=== PATIENT | male | born 1955 | race Caucasian/White ===

== ENCOUNTER 2019-03-26 05:53 | Observation (INO) ==
--- NOTE | 2019-03-19 16:20 | PAT Medication Instructions ---
Medication Instructions Date of Service March 20, 2019 Home Medications bupropion HCl 300 mg PO QAM multivitamin 1 tab PO QAM omeprazole 20 mg PO QPM pravastatin 10 mg PO QPM venlafaxine [Effexor XR] 37.5 mg PO QAM venlafaxine [Effexor XR] 150 mg PO QAM DO NOT take the morning of surgery multivitamin 1 tab PO QAM Take morning of surgery With a small sip of water, OTHERWISE NOTHING TO EAT OR DRINK AFTER MIDNIGHT: venlafaxine [Effexor XR] 37.5 mg PO QAM venlafaxine [Effexor XR] 150 mg PO QAM bupropion HCl 300 mg PO QAM Take evening before surgery omeprazole 20 mg PO QPM pravastatin 10 mg PO QPM Other Notes If you have any questions please call us at [phone] or [phone] or [phone] or [phone]
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
[2019-03-20 10:48] LABS: Basophils # (auto) 0.04 K/uL (0-0.2); Basophils % (auto) 0.4 %; Eosinophils # (auto) 0.21 K/uL (0-0.5); Eosinophils % (auto) 2.1 %; Hematocrit (blood only) 47.6 % (42-52); Hemoglobin 16.5 g/dL (14.0-18.0); Immature Granulocytes # (auto) 0.05 K/uL (0.00-0.02); Immature Granulocytes % (auto) 0.5 %; Lymphocytes # (auto) 2.27 K/uL (1.2-3.4); Lymphocytes % (auto) 23.2 %; Mean Corpuscular Hgb Conc 34.7 g/dL (32-36); Mean Corpuscular Volume 94.4 fL (80-100); Mean Platelet Volume 10.6 fL (7.4-10.4); Monocytes # (auto) 1.45 K/uL (0.11-0.59); Monocytes % (auto) 14.8 %; Neutrophils # (auto) 5.78 K/uL (1.4-6.5); Platelet Count 334 K/uL (130-400); RDW Coefficient of Variation 13.6 % (11.5-14.5); RDW Standard Deviation 47.1 fL (36.4-46.3); Red Blood Count 5.04 M/uL (4.7-6.1)
[2019-03-20 10:55] LABS: BUN Creatinine Ratio 13.4 (10-20); Calcium 9.2 mg/dl (8.5-10.1); Creatinine Clr Calc Pharmacy 85.1 ml/min; Est GFR (African American) 94.6; Est GFR (Non-African American) 81.6; Potassium 4.5 mmol/L (3.5-5.1)
[2019-03-20 11:01] LABS: INR 0.9 (0.9-1.1); Partial Thromboplastin Time 27.1 Seconds (21.0-31.0); Prothrombin Time 9.7 Seconds (9.0-12.0)
--- NOTE | 2019-03-23 14:28 | History and Physical Report ---
DATE OF ADMISSION: 03/26/2019 CHIEF COMPLAINT: Upper extremity weakness. HISTORY OF PRESENT ILLNESS: He has 2-level cervical spine disease. He has partial paralysis. He has weakness of deltoid, biceps. He is going downhill, kyphosis and cannot lift his upper extremity. PAST MEDICAL HISTORY: Positive for anxiety, high cholesterol. No hypertension, COPD, diabetes, carcinoma. PAST SURGICAL HISTORY: Appendectomy, hernia repair, trigger finger release. ALLERGIES: Prozac. MEDICATIONS: Effexor, vitamin, Wellbutrin, pravastatin. FAMILY HISTORY: Heart disease. SOCIAL HISTORY: , moderate alcohol, moderate tobacco. REVIEW OF SYSTEMS: Twelve-system reviewed. He denies any blurred vision, double vision, tinnitus, vertigo. Ear, nose and throat are all negative. Denies chest pain, palpitations. Denies nausea, vomiting, urgency, frequency. No GI distress. He has depression. He has skin rashes. He has profound upper extremity weakness. OBJECTIVE: GENERAL: He is 5 feet 8 inches, 205. He is in significant distress, more weakness, not as much pain. VITAL SIGNS: Blood pressure 130/80, pulse 80, respirations 16. HEENT: Pupils react to light and accommodation. Ear, nose and throat clear. CARDIAC: Normal S1, S2. No S3. ABDOMEN: Soft, nontender, bowel sounds present. MUSCULOSKELETAL: He has a Spurling maneuver and Lhermitte sign. He has weakness as stated. He has slight hyperreflexia. IMPRESSION: Cord compression, cervical spine. PLAN: Includes an anterior cervical discectomy and fusion C3-C5, cervical spine with iliac crest bone graft.
[2019-03-26] MEDS ORDERED: CEFAZOLIN 2000MG 2,000 MG/15 ML SYR IV SCH (06:00)
[2019-03-26] MEDS ORDERED: LR 15ML/HR IV SCH (06:00)
[2019-03-26] MEDS ORDERED: SODIUM CHLORIDE 0.9% 1000ML IV SCH (06:00)
[2019-03-26] MEDS ORDERED: GLYCOPYRROLATE 0.2 MG/ML VIAL ONE (06:30)
[2019-03-26] MEDS ORDERED: LIDOCAINE HCL 2% 2 ML VIAL/AMP(20MG/ML) INFIL ONE (06:30)
[2019-03-26] MEDS ORDERED: ROCURONIUM BROMIDE 10 MG/ML 5 ML VIAL ONE (06:30)
[2019-03-26] MEDS ORDERED: DEXAMETHASONE SOD INJ 4 MG/ML VIAL ONE (06:30)
[2019-03-26] MEDS ORDERED: ONDANSETRON INJ 2 MG/ML 2 ML VIAL ONE ×2 (06:30→06:33)
[2019-03-26] MEDS ORDERED: NEOSTIGMINE METHYLSULFATE 5 MG/5 ML SYR ONE (06:30)
[2019-03-26] MEDS ORDERED: PROPOFOL IV EMULSION 10 MG/ML 20 ML VIAL IV ONE (06:30)
[2019-03-26] MEDS ORDERED: fentaNYL citrate 100 MCG/2 ML VIAL ONE ×2 (06:31)
[2019-03-26] MEDS ORDERED: MIDAZOLAM HCL 1 MG/ML 2ML VIAL ONE (06:31)
[2019-03-26] MEDS ORDERED: KETAMINE HCL INJ 50 MG/ML 10 ML VIAL ONE (06:32)
[2019-03-26] MEDS ORDERED: HYDROmorphone INJ 2 MG/ML SYR/VIAL ONE ×2 (06:32→08:24)
[2019-03-26] MEDS ORDERED: ACETAMINOPHEN 1000 MG/100 ML IV IV ONE (06:41)
[2019-03-26] MEDS ORDERED: BUPIVACAINE/EPINEPHRINE 0.5% MPF 1:200,000 30 ML VIAL ONE ×2 (06:51→06:55)
[2019-03-26] MEDS ORDERED: GELATIN SPONGE SZ 100 ONE (06:52)
[2019-03-26] MEDS ORDERED: BACITRACIN INJ 50,000 UNIT VIAL ONE (06:52)
[2019-03-26] MEDS ORDERED: THROMBIN FOR SOLN 20000 UNIT KIT ONE (06:52)
[2019-03-26] MEDS ORDERED: ONDANSETRON INJ 2 MG/ML 2 ML VIAL IV PRN ×2 (07:01→11:16)
[2019-03-26] MEDS ORDERED: ATROPINE SULFATE 0.1 MG/ML 10ML SYR IV PRN (07:01)
[2019-03-26] MEDS ORDERED: ePHEDrine sulfate 50 MG/ML AMP IV PRN (07:01)
[2019-03-26] MEDS ORDERED: HYDROmorphone INJ 1 MG/ML SYRINGE IV PRN (07:01)
--- NOTE | 2019-03-26 07:03 | History & Physical Bridge Note ---
Date of Service March 26, 2019 History & Physical Bridge Note I have examined the patient, reviewed the History & Physical and in the interval since the performance of the History & Physical I have noted the following changes of clinical significance: no changes noted
[2019-03-26] MEDS ORDERED: ALBUTEROL HFA INHALER 8.5 GM ONE (07:57)
--- NOTE | 2019-03-26 09:27 | Fluoroscopy Report ---
FL spine 1V any level HISTORY: Cervical fusion. FLUOROSCOPY TIME: 14 seconds. FINDINGS: Intraoperative fluoroscopy was provided for the cervical spine.. 1 fluoroscopic spot images were obtained. IMPRESSION: Fluoroscopy provided for a cervical fusion.. The above report was generated using voice recognition software. It may contain grammatical, syntax or spelling errors. Electronically signed by: Jose Holder M.D. 03/26/2019 9:26 AM
--- NOTE | 2019-03-26 09:40 | Post Operative Brief Note ---
Immediate Post Op Note v1 Date of Surgery March 26, 2019 Pre & Post Diagnosis Operation Date: 03/26/19 07:30 Pre-Op Diagnosis: Cord Compression Post-Op Diagnosis: Cord Compression Procedure Operation Date: 03/26/19 07:30 Actual Procedures p C3-C4, C4-C5 Anterior Cervical Discectomy Fusion(Not Applicable) - Mike Tay DO Surgeon Mike Tay DO Marker Assembler padmini duncan Estimated Blood Loss 20 Findings Consistent with Post-Op Diagnosis Drains Sheba Drain Complications none Disposition Accompanied Patient To Recovery: Yes Overlapping Procedure I was immediately available: during the entire case.
[2019-03-26] MEDS: fentaNYL citrate 100 MCG/2 ML VIAL IV PRN ×2 (09:49→09:54)
--- NOTE | 2019-03-26 10:52 | Anesthesiology Progress Note ---
Date of Service March 26, 2019 Anesthesia Post Procedure Vital Signs Vital Signs: Temp Pulse Pulse Resp BP BP Pulse Ox 03/26/19 10:45 83 16 146/80 H 94 03/26/19 10:35 36.5 C 85 16 152/93 H 94 03/26/19 10:25 86 15 159/84 H 94 03/26/19 10:15 85 14 153/88 H 95 03/26/19 10:05 88 16 160/92 H 96 03/26/19 09:55 86 16 163/97 H 97 03/26/19 09:45 92 H 18 172/95 H 98 03/26/19 09:34 36.3 C L 99 H 14 172/94 H 97 03/26/19 06:17 36.6 C 66 16 164/94 H 99 Transfer of Care Handoff Completed per policy Notes Mental Status: alert / awake / arousable and participated in evaluation Patient Amnestic to Procedure: Yes Nausea / Vomiting: adequately controlled Pain: adequately controlled Airway Patency, RR, SpO2: stable & adequate BP & HR: stable & adequate Hydration State: stable & adequate Anesthetic Complications: no major complications apparent and Pt Satisfied with anesthetic care
[2019-03-26] MEDS ORDERED: TRIAMCINOLONE ACET 0.025% CR 15 GM TUBE TOP PRN (11:16)
[2019-03-26] MEDS ORDERED: LORazepam 0.5 MG TAB PO PRN (11:16)
[2019-03-26] MEDS ORDERED: ACETAMINOPHEN 1,000 MG/100 ML VIAL IV PRN (11:16)
[2019-03-26] MEDS ORDERED: DEXAMETHASONE SOD PHOSPHATE 8 MG in SYRINGE 0 ML IV PRN (11:16)
[2019-03-26] MEDS ORDERED: RACEPINEPHRINE 2.25% NEBU SOLN 0.5 ML VIAL INH PRN (11:16)
[2019-03-26] MEDS ORDERED: NALOXONE HCL 0.4 MG/1 ML VIAL/CARP IV PRN (11:16)
[2019-03-26] MEDS ORDERED: HYDROmorphone INJ 0.5 MG/0.5 ML SYR IV PRN (11:16)
[2019-03-26] MEDS: SODIUM CHLORIDE 0.9% 1000ML 1,000 ML IV SCH (12:21)
--- NOTE | 2019-03-26 14:05 | Operative Report ---
DATE OF OPERATION: 03/26/2019 PREOPERATIVE DIAGNOSIS: Spinal cord compression, C3-C4, C4-C5 cervical spine. POSTOPERATIVE DIAGNOSIS: Spinal cord compression, C3-C4, C4-C5 cervical spine. PROCEDURES: Anterior cervical discectomy and fusion, C3-C4, C4-C5 cervical spine with an anterior interbody spacer, mechanical device, PEEK spacer at C3-C4 and C4-C5 cervical spine. SURGEON: Mike Tay DO SUPERVISOR CUTTING AND SEWING ROOM: Johnny Vu PA-C DESCRIPTION OF PROCEDURE: The patient was identified in the preop holding area, initialed, marked. A bridge note provided. He was brought back. He was intubated, placed on the table, prepped and draped sterile. Formal timeout taken. We made a transverse skin incision, fascial incision, with relative ease, we got down to the spinal elements. He was a fairly good size individual, it was not a simple dissection. We were able to come in on the C4-C5 interval of cervical spine, putting in our hand-held retractors. We then commenced with a formal discectomy at C4-C5 and C3-C4 of the cervical spine, at both levels, we got back through the posterior longitudinal ligament. I took off ligamentous structures, disc structures. I did foraminotomies at both levels. The discectomy was completed. I was very pleased with the evacuation of the disc material. We then used the implants. I used local autograft, but I had taken from the vertebral bodies of C3 and C4. I was able to use that to place into the PEEK spacers for the vacated discectomy sites. I also used a material called DBM, which is in demineralized bone matrix to help fill in the void. The implants were locked superior and inferior at both levels. We irrigated thoroughly. Cross table x-ray looked appropriate. Sterile dressings applied. Collar applied. The patient returned to PACU stable. There were no complications. Sponge and needle count correct. IMPLANTS USED: By the [employer]. I attest to the content of the Intraoperative Record and any orders documented therein. Any exception s are noted below.
[2019-03-26] MEDS ORDERED: LORazepam 1 MG/2 ML VIAL IV PRN (15:00)
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
[2019-03-26] MEDS: OXYCODONE HCL IR 5 MG TAB (IMMEDIATE RELEASE) PO PRN ×3 (15:44→21:16)
[2019-03-26] MEDS: CEFAZOLIN 2000MG 2,000 MG/15 ML SYR IV SCH ×2 (16:29→23:56)
[2019-03-26] MEDS ORDERED: AMLODIPINE BESYLATE 5 MG TAB PO ONE (18:30)
[2019-03-26] MEDS ORDERED: PRAVASTATIN SOD 10 MG TAB PO SCH (21:00)
[2019-03-26] MEDS ORDERED: PANTOprazole 40 MG TAB PO SCH (21:00)
[2019-03-27] MEDS ORDERED: cloNIDine HCl 0.1 MG TAB PO ONE ×2 (00:34→10:37)
[2019-03-27] MEDS: SODIUM CHLORIDE 0.9% 1000ML 1,000 ML IV SCH (01:04)
[2019-03-27] MEDS: OXYCODONE HCL IR 5 MG TAB (IMMEDIATE RELEASE) PO PRN ×3 (02:55→14:36)
[2019-03-27 07:09] LABS: Hematocrit (blood only) 46.9 % (42-52); Hemoglobin 15.9 g/dL (14.0-18.0); Mean Corpuscular Hgb Conc 33.9 g/dL (32-36); Mean Corpuscular Volume 96.5 fL (80-100); Mean Platelet Volume 10.4 fL (7.4-10.4); Platelet Count 259 K/uL (130-400); RDW Coefficient of Variation 13.7 % (11.5-14.5); RDW Standard Deviation 48.4 fL (36.4-46.3); Red Blood Count 4.86 M/uL (4.7-6.1); White Blood Count 15.83 K/uL (4.8-10.8)
[2019-03-27 07:40] LABS: Calcium 8.9 mg/dl (8.5-10.1); Creatinine Clr Calc Pharmacy 85.5 ml/min; Est GFR (African American) 95.8; Est GFR (Non-African American) 82.6; Potassium 3.8 mmol/L (3.5-5.1)
[2019-03-27] MEDS: CEFAZOLIN 2000MG 2,000 MG/15 ML SYR IV SCH (08:13)
--- NOTE | 2019-03-27 08:29 | Anesthesiology Progress Note ---
Date of Service March 27, 2019 Anesthesia Post Procedure Vital Signs Vital Signs: Temp Pulse Pulse Pulse Resp BP BP 03/27/19 07:07 72 14 03/27/19 06:05 36.4 C L 73 16 163/101 H 03/27/19 04:07 36.5 C 71 18 162/103 H 03/27/19 03:49 67 18 03/27/19 02:51 36.6 C 78 14 170/110 H 03/27/19 02:02 36.4 C L 71 18 170/109 H 03/27/19 00:25 170/92 H 03/27/19 00:11 36.4 C L 78 18 191/110 H 03/27/19 00:05 03/26/19 23:25 81 18 03/26/19 22:19 36.4 C L 74 18 160/94 H 03/26/19 20:05 36.4 C L 74 16 148/92 H 03/26/19 19:00 88 18 03/26/19 18:03 36.4 C L 80 150/93 H 03/26/19 15:38 36.3 C L 90 14 132/88 03/26/19 14:01 88 18 148/97 H 03/26/19 13:05 36.4 C L 88 18 160/97 H 03/26/19 12:16 151/91 H 03/26/19 12:03 89 18 165/101 H 03/26/19 11:37 89 18 143/87 H 03/26/19 11:19 36.4 C L 87 18 135/76 03/26/19 11:13 86 18 03/26/19 10:45 83 16 146/80 H 03/26/19 10:35 36.5 C 85 16 152/93 H 03/26/19 10:25 86 15 159/84 H 03/26/19 10:15 85 14 153/88 H 03/26/19 10:05 88 16 160/92 H 03/26/19 09:55 86 16 163/97 H 03/26/19 09:45 92 H 18 172/95 H 03/26/19 09:34 36.3 C L 99 H 14 172/94 H Pulse Ox Pulse Ox 03/27/19 07:07 94 03/27/19 06:05 99 03/27/19 04:07 99 03/27/19 03:49 98 03/27/19 02:51 97 03/27/19 02:02 98 03/27/19 00:25 03/27/19 00:11 96 03/27/19 00:05 98 03/26/19 23:25 95 03/26/19 22:19 96 03/26/19 20:05 95 03/26/19 19:00 97 03/26/19 18:03 96 03/26/19 15:38 96 03/26/19 14:01 97 03/26/19 13:05 95 03/26/19 12:16 03/26/19 12:03 95 03/26/19 11:37 94 03/26/19 11:19 95 03/26/19 11:13 95 03/26/19 10:45 94 03/26/19 10:35 94 03/26/19 10:25 94 03/26/19 10:15 95 03/26/19 10:05 96 03/26/19 09:55 97 03/26/19 09:45 98 03/26/19 09:34 97 Pain Intensity Anterior Neck: Pain Intensity: 0 Right Shoulder: Pain Intensity: 0 Notes Mental Status: alert / awake / arousable and participated in evaluation Patient Amnestic to Procedure: Yes Nausea / Vomiting: adequately controlled Pain: adequately controlled Airway Patency, RR, SpO2: stable & adequate BP & HR: stable & adequate Hydration State: stable & adequate Anesthetic Complications: no major complications apparent and Pt Satisfied with anesthetic care
[2019-03-27] MEDS ORDERED: BuPROPion XL 300 MG TABCR PO SCH (09:00)
[2019-03-27] MEDS ORDERED: FOLIC ACID 1 MG TAB PO SCH (09:00)
[2019-03-27] MEDS ORDERED: VENLAFAXINE HCL XR 37.5 MG CAPXR PO SCH (09:00)
[2019-03-27] MEDS ORDERED: VENLAFAXINE HCL XR 150 MG CAPXR PO SCH (09:00)
[2019-03-27] MEDS ORDERED: THIAMINE HCL 100 MG TAB PO SCH (09:00)
[2019-03-27] MEDS ORDERED: HydrALAZINE HCL 20 MG/ML VIAL IV ONE (09:38)
--- NOTE | 2019-03-27 09:48 | Hospitalist Progress Note ---
Date of Service March 27, 2019 Assessment & Plan (1) History of cervical spinal surgery: This is a 63yo M with a PMH of mood disorder, ANTHONY, h/o heavy etoh use, tobacco use and other medical problems listed below who is POD#0 s/p anterior cervical discectomy and fusion C3-C5 by Dr. Tay. POD#1 s/p anterior cervical discectomy and fusion C3-C5 by Dr. Tay tolerated procedure well Per ortho for pain control, wound care, anticoagulation and activities Monitor H&H (EBL: 20ml, pre-op hgb 16.5) Continue incentive spirometry, PT/OT when appropriate (2) Elevated blood pressure reading: Blood pressure elevated postoperatively, currently 175/108 Patient denies history of hypertension Per [facility] records patient BP mostly controlled in outpt setting Likely pain is playing some contributing factor He did receive amlodipine at 1900 yesterday and 0.1 mg of clonidine at 1 AM today Give 5mg IV hydralazine x 1 now History of EtOH abuse, on withdrawal protocol Also history of tobacco abuse, denies need for nicotine patch Patient will be discharged home at 12 PM today I have set him up with his PCP office on 03/29 11 AM for hospital follow-up as well as repeat blood pressure check currently asymptomatic; have encouraged patient to monitor blood pressure until seen by PCP (3) Mood disorder: mood stable. Continue Effexor, Wellbutrin (4) GERD (gastroesophageal reflux disease): Continue PPI (5) Prediabetes: Managing with a low carb diet as an out-patient Carb consistent diet (6) Sleep apnea: Intolerant to CPAP (7) Tobacco use disorder: Recently decreased to 1/2 ppd Does not feel he needs nicotine patch PCP: Celina (Nupur) Follow up scheduled for 03/29/19 at 11am with Katina Saunders Dispo: Per primary service Patient seen in collaboration with Dr. Siddiqi. Please see addendum. Supervising Physician Co-Signing Physician Notes I saw this patient with the physician accounts payable assistant, Physical Exam Gen-AAO x 3, NAD, Afebrile Neck-s/p cervical spine surgery Lungs-Clear to Auscultation Bilaterally, No Rales, No Rhonchi, No Wheezing, No Crepitus Chest-No S4, +S1, +S2, No S3, No Murmurs, No Rubs, No Gallops, No Ectopy Musculoskeletal-Full Range of Motion Bilaterally, Extremities-No Cyanosis, No Clubbing, No Edema Nuero- Non Focal Psych-Normal Mood 63 yo Male s/p cervical spine surgery hypertensive episode noted -asymptomatic no prior hx of HTN does not report of any pain or discomfort BP improved after addition of hydralazine pt will need close follow up with family physician for BP eval and management Melodie Siddiqi MD Subjective Patient was seen and examined in room 319 Follow-up POD #[address] Tay; Post op HTN Patient was sitting up in bed. States he did not sleep very much last night and is very tired due to being woken up by nurses due to his blood pressure. Currently his pain is improved, 2/10 recently giving analgesia. He denies any fever, chills, sweats, headache, lightheadedness, dizziness, chest pain, shortness, palpitations, nausea, vomiting, abdominal pain. He is passing flatus. He is urinating without difficulty. He states he is going home at noon today. Tolerating current diet. Review of Systems Review of Systems: As noted per HPI, 10 systems reviewed and negative unless noted above. Physical Exam Physical Exam: Gen: WD/WN, M, sittng up in bed, NAD, A&O x3 HEENT: Normocephalic, atraumatic, conjunctivae moist, sclerae anicteric, mucous membranes moist. + ACDF dressing CDI with mild serosanginous drainage Lung: Clear to Auscultation bilaterally, no wheezes/rales/rhonchi Heart: Regular rate, regular rhythm, no murmurs, rubs, or gallops Abdomen: Soft, NT, ND +BS x 4 Extremities: No edema Skin: Warm, no rash, negative turgor. Results & Data Vital Signs (Past 12 Hours) Vital Signs Temp Pulse Pulse Resp BP Pulse Ox Pulse Ox 03/27/19 07:07 72 14 94 03/27/19 06:05 36.4 C L 73 16 163/101 H 99 03/27/19 04:07 36.5 C 71 18 162/103 H 99 03/27/19 03:49 67 18 98 03/27/19 02:51 36.6 C 78 14 170/110 H 97 03/27/19 02:02 36.4 C L 71 18 170/109 H 98 03/27/19 00:25 170/92 H 03/27/19 00:11 36.4 C L 78 18 191/110 H 96 03/27/19 00:05 98 03/26/19 23:25 81 18 95 03/26/19 22:19 36.4 C L 74 18 160/94 H 96 Laboratory Results Short CBC 03/27/19 Range/Units 06:43 WBC 15.83 H (4.8-10.8) K/uL Hgb 15.9 (14.0-18.0) g/dL Hct 46.9 (42-52) % Plt Count 259 (130-400) K/uL BMP 03/27/19 06:43 Sodium 139 Potassium 3.8 Chloride 103 Carbon Dioxide 29 BUN 12 Creatinine 0.96 Glucose 102 H Calcium 8.9 Medications Administered Bupropion HCl (Wellbutrin-Xl) 300 mg PO [facility] Stop: 04/26/19 08:59 Last Admin: 03/27/19 08:13 Dose: 300 mg Documented by: [id number] Folic Acid (Folvite) 1 mg PO [facility] Stop: 04/26/19 08:59 Last Admin: 03/27/19 08:31 Dose: 1 mg Documented by: [id number] Hydromorphone HCl (Dilaudid) 0.5 mg IV Q3H PRN PRN Reason: moderate pain (scale 4-6) Stop: 04/09/19 11:15 Last Admin: 03/26/19 12:20 Dose: 0.5 mg Documented by: [id number] Sodium Chloride (Nss 1000ml) 1,000 mls @ 80 mls/hr IV .[id number] [facility] Stop: 04/25/19 11:44 Last Admin: 03/27/19 01:04 Dose: 80 mls/hr Documented by: [id number] Infusion: 03/27/19 00:52 Dose: 80 mls/hr Documented by: [id number] Infusion: 03/26/19 17:49 Dose: 80 mls/hr Documented by: [id number] Admin: 03/26/19 12:21 Dose: 80 mls/hr Documented by: [id number] Oxycodone HCl (Roxicodone Immediate Rel) 5 - 10 mg PO Q4H PRN PRN Reason: Pain Stop: 04/09/19 11:15 Last Admin: 03/27/19 08:14 Dose: 10 mg Documented by: [id number] Admin: 03/27/19 02:55 Dose: 10 mg Documented by: [id number] Admin: 03/26/19 21:16 Dose: 10 mg Documented by: [id number] Admin: 03/26/19 16:34 Dose: 5 mg Documented by: [id number] Admin: 03/26/19 15:44 Dose: 5 mg Documented by: [id number] Pantoprazole Sodium (Protonix) 40 mg PO QPM [facility] Stop: 04/25/19 20:59 Last Admin: 03/26/19 21:15 Dose: 40 mg Documented by: [id number] Pravastatin Sodium (Pravachol) 10 mg PO QPM [facility] Stop: 04/25/19 20:59 Last Admin: 03/26/19 21:15 Dose: 10 mg Documented by: [id number] Thiamine HCl (Vitamin B-1) [facility] Stop: 04/26/19 08:59 Last Admin: 03/27/19 08:31 Dose: 100 mg Documented by: [id number] Venlafaxine HCl (Effexor Extended Release) 37.5 mg PO [facility] Stop: 04/26/19 08:59 Last Admin: 03/27/19 08:13 Dose: 37.5 mg Documented by: [id number] Venlafaxine HCl (Effexor Extended Release) 150 mg [facility] Stop: 04/26/19 08:59 Last Admin: 03/27/19 08:13 Dose: 150 mg Documented by: [id number] Discontinued Medications Amlodipine Besylate (Norvasc) 5 mg PO NOW ONE Stop: 03/26/19 18:31 Last Admin: 03/26/19 19:11 Dose: 5 mg Documented by: [id number] Bacitracin (Bacitracin) Confirm Administered Dose 50,000 units .ROUTE .STK-MED ONE Stop: 03/26/19 06:53 Last Admin: 03/26/19 08:15 Dose: 50,000 units Documented by: [id number] Bupivacaine HCl/Epinephrine Bitart (Sensorcaine/Epinephrine 0.5% Mpf 1:200,000) Confirm Administered Dose 30 ml .ROUTE .STK-MED ONE Stop: 03/26/19 06:52 Last Admin: 03/26/19 09:19 Dose: 7 ml Documented by: [id number] Bupivacaine HCl/Epinephrine Bitart (Sensorcaine/Epinephrine 0.5% Mpf 1:200,000) Confirm Administered Dose 30 ml .ROUTE .STK-MED ONE Stop: 03/26/19 06:56 Last Admin: 03/26/19 09:15 Dose: Not Given Documented by: [id number] Clonidine HCl (Catapres) 0.1 mg PO NOW ONE Stop: 03/27/19 00:35 Last Admin: 03/27/19 01:04 Dose: 0.1 mg Documented by: [id number] Fentanyl Citrate (Fentanyl Citrate) 25 mcg IV Q5M PRN PRN Reason: PACU Use Only-Pain Stop: 03/26/19 12:01 Last Admin: 03/26/19 09:54 Dose: 25 mcg Documented by: [id number] Admin: 03/26/19 09:49 Dose: 25 mcg Documented by: [id number] Gelatin (Surgifoam Sponge 100 (Large)) Confirm Administered Dose 1 ea .ROUTE .STK-MED ONE Stop: 03/26/19 06:53 Last Admin: 03/26/19 08:15 Dose: 1 ea Documented by: [id number] Lactated Ringer's (Lr) 1,000 mls @ 15 mls/hr IV .Q24H [facility] Stop: 03/27/19 05:59 Last Infusion: 03/26/19 07:35 Dose: 0 mls/hr Documented by: [id number] Admin: 03/26/19 06:37 Dose: 15 mls/hr Documented by: [id number] Sodium Chloride (Nss 1000ml) 1,000 mls @ 15 mls/hr IV .Q24H [facility] Stop: 03/27/19 05:59 Last Admin: 03/26/19 06:38 Dose: Not Given Documented by: [id number] Cefazolin Sodium (Ancef 2000mg) 2,000 mg in 15 mls @ 3.75 mls/min IV PREOP [facility]HA; Protocol Stop: 03/26/19 18:00 Last Admin: 03/26/19 07:35 Dose: 3.75 mls/min Documented by: [id number] Cefazolin Sodium (Ancef 2000mg) 2,000 mg in 15 mls @ 3.75 mls/min IV Q8H [facility]; Protocol Stop: 03/27/19 08:03 Last Admin: 03/27/19 08:13 Dose: 3.75 mls/min Documented by: [id number] Admin: 03/26/19 23:56 Dose: 3.75 mls/min Documented by: [id number] Admin: 03/26/19 16:29 Dose: 3.75 mls/min Documented by: [id number] Thrombin (Recothrom Kit) Confirm Administered Dose 20,000 units .ROUTE .[facility]-MED ONE Stop: 03/26/19 06:53 Last Admin: 03/26/19 09:15 Dose: 11,000 units Documented by: [id number]
--- NOTE | 2019-03-28 10:15 | Discharge Summary ---
He is alert, oriented. He had an uneventful 24-hour stay in the hospital. I am seeing him on rounds this morning at approximately 7:30. He was alert and oriented. Taking p.o. No complaints. He will be discharged home in approximately 4 hours. He has a cervical collar, which is to be worn. He has instructions, precautions, and a followup appointment. A prescription for [place] is on his chart.
== END 2019-03-27 14:39 | disposition home or self-care (01) ==
LOC: ASU 05:53 → 3E 05:53
DX: Z79.899 Other long term (current) drug therapy; K21.9 Gastro-esophageal reflux disease without esophagitis; Z87.828 Personal history of other (healed) physical injury and trauma; G47.30 Sleep apnea, unspecified; F41.9 Anxiety disorder, unspecified; M50.01 Cervical disc disorder with myelopathy, high cervical region; F12.10 Cannabis abuse, uncomplicated; Z88.8 Allergy status to other drugs, medicaments and biological substances; R73.03 Prediabetes